=== PATIENT | female | born 1990 | race Caucasian/White ===

== ENCOUNTER 2017-04-21 14:19 | Inpatient (IN) | payer OTHER ==
[~2017-04-21] VITALS: Ht 182.9 cm; Wt 85.1 kg
[~2017-04-21 14:19] MED LIST: AUGM875T PO; TAB-TAB PO
[2017-04-21 14:50] VITALS: BP 103/63; PULSE 85; RESP 18; TEMP 98.6; O2SAT 97
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
[2017-04-21] MEDS ORDERED: ONDANSETRON HCL 4 MG/2 ML VIAL IV PUSH ONE (15:30)
[2017-04-21] MEDS ORDERED: MORPHINE SULFATE 4 MG/ML INJ IV PUSH ONE ×2 (15:30→17:15)
[2017-04-21 15:37] LABS: AUTOMATED NEUTROPHIL # 10.3 TH/MM3 (1.8-7.7); BASOPHIL % 0.1 % (0.0-2.0); EOSINOPHIL # 0.1 TH/MM3 (0-0.4); EOSINOPHIL % 0.7 % (0.0-4.0); HEMATOCRIT 39.6 % (35.0-46.0); HEMO FLAGS DIFF FINAL; LYMPH % 10.1 % (9.0-44.0); LYMPHOCYTE # 1.2 TH/MM3 (1.0-4.8); MEAN CELL VOLUME 89.7 FL (80.0-100.0); MEAN CORPUSCULAR HEMOGLOBIN 30.8 PG (27.0-34.0); MEAN CORPUSCULAR HGB CONC 34.4 % (32.0-36.0); MONO % 5.6 % (0.0-8.0); NEUT % 83.5 % (16.0-70.0); PLATELET COUNT 226 TH/MM3 (150-450); RED BLOOD COUNT 4.41 MIL/MM3 (4.00-5.30); RED CELL DISTRIBUTION WIDTH 13.5 % (11.6-17.2); WHITE BLOOD COUNT 12.3 TH/MM3 (4.0-11.0)
[2017-04-21 15:52] LABS: BICARBONATE 26.7 MEQ/L (21.0-32.0)
[2017-04-21] MEDS ORDERED: MIRA0.25 PO (16:00)
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
[2017-04-21] MEDS ORDERED: IOHEXOL 350 MG/ML 10 ML VIAL (for RAD DIAG) IV ONE (17:08)
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
[2017-04-21 18:16] VITALS: BP 108/75; PULSE 89; RESP 16; O2SAT 99
[2017-04-21] MEDS ORDERED: ACETAMINOPHEN/HYDROcodone 325 MG/5 MG TAB PO PRN (18:30)
[2017-04-21] MEDS ORDERED: ONDANSETRON HCL 4 MG/2 ML VIAL IV PRN (18:30)
[2017-04-21] MEDS ORDERED: CHLORHEXIDINE GLUCONATE 2 % 1 PACK (2 CLOTHS) TOP PRN (18:30)
[2017-04-21] MEDS ORDERED: ENALAPRILAT 1.25 MG/ML VIAL IV PRN (18:30)
[2017-04-21] MEDS ORDERED: SODIUM CHLORIDE 0.9% FLUSH 10 ML FLUSH IV FLUSH PRN (18:30)
[2017-04-21] MEDS ORDERED: MISCELLANEOUS NURSING INFORMATION XX SCH (18:30)
[2017-04-21] MEDS: SODIUM CHLOR 0.9% 1000 ML INJ 1,000 ML IV SCH (20:00)
[2017-04-21] MEDS ORDERED: PANTOPRAZOLE SODIUM 40 MG VIAL IVP SCH (20:00)
[2017-04-21] MEDS: ACETAMINOPHEN/HYDROcodone 325 MG/5 MG TAB PO PRN (20:14)
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
[2017-04-21] MEDS: HYDROmorphone HCL PF 1 MG/ML VIAL IVP PRN (21:26)
[2017-04-21] MEDS: BACITRACIN TOP OINT 15 GM TUBE TOP SCH (21:27)
[2017-04-21] MEDS: DOCUSATE SODIUM 100 MG CAP PO SCH (21:27)
[2017-04-21 21:36] VITALS: BP 155/87; PULSE 99; RESP 16; TEMP 99.6; O2SAT 99
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
[2017-04-22] MEDS: ACETAMINOPHEN/HYDROcodone 325 MG/5 MG TAB PO PRN ×4 (00:53→14:29)
[2017-04-22] MEDS: HYDROmorphone HCL PF 1 MG/ML VIAL IVP PRN ×2 (02:13→06:54)
[2017-04-22] MEDS: SODIUM CHLOR 0.9% 1000 ML INJ 1,000 ML IV SCH ×2 (03:07→14:21)
[2017-04-22 04:00] VITALS: BP 123/73; PULSE 80; RESP 17; TEMP 98.4; O2SAT 98
[2017-04-22] MEDS ORDERED: CHLORHEXIDINE GLUCONATE 2 % 1 PACK (2 CLOTHS) TOP SCH (04:00)
--- NOTE | 2017-04-22 06:51 | RADRPT ---
EXAM DATE/TIME: 04/22/2017 05:59 [facility] COMPARISON: CT THORAX W CONTRAST, April 21, 2017, 16:55. INDICATIONS : Shortness of breath. MEDICAL HISTORY : None. SURGICAL HISTORY : None. ENCOUNTER: Subsequent ACUITY: 2 days PAIN SCORE: Non-responsive. LOCATION: Bilateral chest FINDINGS: Area of contusion/consolidation of the anterior right lung base is unchanged. No pleural effusion see n. No pneumothorax. Heart size stable, within normal limits. CONCLUSION: No significant change. Dakota Alvarado MD on April 22, 2017 at 6:49 Board Certified Radiologist. This report was verified electronically.
[2017-04-22 07:15] LABS: AUTOMATED NEUTROPHIL # 5.7 TH/MM3 (1.8-7.7); BASOPHIL % 0.1 % (0.0-2.0); EOSINOPHIL # 0.2 TH/MM3 (0-0.4); HEMATOCRIT 34.4 % (35.0-46.0); HEMO FLAGS DIFF FINAL; LYMPHOCYTE # 1.9 TH/MM3 (1.0-4.8); MEAN CELL VOLUME 89.4 FL (80.0-100.0); MEAN CORPUSCULAR HEMOGLOBIN 31.2 PG (27.0-34.0); MEAN CORPUSCULAR HGB CONC 34.9 % (32.0-36.0); MONO % 9.2 % (0.0-8.0); NEUT % 66.7 % (16.0-70.0); PLATELET COUNT 206 TH/MM3 (150-450); RED BLOOD COUNT 3.85 MIL/MM3 (4.00-5.30); RED CELL DISTRIBUTION WIDTH 13.5 % (11.6-17.2); WHITE BLOOD COUNT 8.5 TH/MM3 (4.0-11.0)
[2017-04-22 07:41] LABS: BICARBONATE 24.3 MEQ/L (21.0-32.0); POTASSIUM 3.8 MEQ/L (3.5-5.1)
[2017-04-22 07:45] VITALS: BP 132/72; PULSE 82; RESP 18; TEMP 97.8; O2SAT 99
[2017-04-22] MEDS: DOCUSATE SODIUM 100 MG CAP PO SCH (08:13)
[2017-04-22] MEDS: BACITRACIN TOP OINT 15 GM TUBE TOP SCH (08:14)
--- NOTE | 2017-04-22 08:14 | PD.ORT.PN ---
Subjective Subjective Remarks Patient comfortable. Pain controlled. Objective Vitals Vital Signs Date Time Temp Pulse Resp B/P Pulse Ox O2 Delivery O2 Flow Rate FiO2 04/22/17 07:45 97.8 82 18 132/72 99 04/22/17 04:00 98.4 80 17 123/73 98 04/21/17 21:36 99.6 99 16 155/87 99 04/21/17 18:16 89 16 108/75 99 Room Air 04/21/17 14:50 98.6 85 18 103/63 97 I/O 04/21/17 04/21/17 04/21/17 04/22/17 04/22/17 04/22/17 06:59 14:59 22:59 06:59 14:59 22:59 Intake Total 480 ml Balance 480 ml Intake Oral 480 ml # Voids 2 # Bowel Movements 0 Result Diagram: 04/22/17 0648 04/22/17 0648 Imaging Last 24 hours Impressions Chest X-Ray 04/22/17 0000 Signed Impressions: Service Date/Time: Saturday, April 22, 2017 05:59 - CONCLUSION: No significant change. Dakota Alvarado MD Shoulder X-Ray 04/21/171451 Signed Impressions: Service Date/Time: Friday, April 21, 2017 15:14 - CONCLUSION: 1. Mildly displaced fracture of the distal left clavicle. Kane Brown MD Hip and Pelvis X-Ray 04/21/171451 Signed Impressions: Service Date/Time: Friday, April 21, 2017 15:14 - CONCLUSION: 1. Negative examination. Kane Brown MD Head CT 04/21/171451 Signed Impressions: Service Date/Time: Friday, April 21, 2017 16:50 - CONCLUSION: Normal examination. Dakota Beck MD Chest X-Ray 04/21/171451 Signed Impressions: Service Date/Time: Friday, April 21, 2017 15:22 - CONCLUSION: 1. No acute cardiopulmonary disease. Alber Thorpe MD Chest CT 04/21/17 145 Signed Impressions: Service Date/Time: Friday, April 21, 2017 16:55 - CONCLUSION: 1. There is infiltrate throughout portions of the right upper right middle lobe most consistent with pulmonary contusion. No definite pneumothorax is seen. No definite rib fracture is identified. Kane Brown MD Cervical Spine CT 04/21/17 4451 Signed Impressions: Service Date/Time: Friday, April 21, 2017 16:50 - CONCLUSION: No acute disease. Dakota Beck MD Objective Remarks Left clavicle small abrasion and swelling noted to area tenderness with direct palpation distally motor, neuro and sensory intact sling in place Assessment & Plan Problem List: (1) Clavicular fracture Plan: X-rays were reviewed and the case was discussed with nurse practitioner Elicia. Recommend proceeding with nonoperative fracture care. We will continue to follow patient. Ultimately he will follow up in the office as outpatient. Assessment and Plan Pain management Non-operative management at this time. Sling in place Application of ice pack to area Monitor Bebeto Rubi Apr 22, 2017 08:14
[2017-04-22] MEDS ORDERED: PRAMIPEXOLE DIHYDROCHLORIDE 0.25 MG TAB PO SCH (09:00)
[2017-04-22 11:54] VITALS: BP 131/75; PULSE 90; RESP 18; TEMP 97.1; O2SAT 98
[2017-04-22] MEDS ORDERED: HYDR-4107 PO (11:55)
[2017-04-22] MEDS ORDERED: CYCL1TAB29 PO (12:42)
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
[2017-04-22] MEDS ORDERED: DOCU1CAP39 PO (15:47)
== END 2017-04-22 15:55 | disposition home or self-care (01) | DRG 206 ==
LOC: NEPC 14:19 → NEDA 18:06 → OBSVTOIN 18:25 → N06B 20:32
PROVIDERS: ADMIT Surgery; ATTEND Surgery
DX: S27.321A Contusion of lung, unilateral, initial encounter (principal); G89.29 Other chronic pain; S42.032A Displaced fracture of lateral end of left clavicle, initial encounter for closed fracture; S30.1XXA Contusion of abdominal wall, initial encounter; K21.9 Gastro-esophageal reflux disease without esophagitis; M54.9 Dorsalgia, unspecified; V47.5XXA Car driver injured in collision with fixed or stationary object in traffic accident, initial encounter; Y99.8 Other external cause status; Y92.411 Interstate highway as the place of occurrence of the external cause
CPT/HCPCS: 70450; 71010; 71260; 72125; 73030; 73502; 74177; 80048; 84703; 85025; 94150; 96374; 96375; 96376; C9113; J1170; J2270; J2405; J7030; Q9967